=== PATIENT | male | born 2000 | race Caucasian/White ===

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

== ENCOUNTER 2019-03-27 10:13 | Emergency (ER) | payer BC, OTHER ==
[2019-03-27] MEDS ORDERED: NA CHLORIDE 0.9% 1,000 ML ONE (12:17)
[2019-03-27] MEDS ORDERED: ONDANSETRON 4 MG/2 ML VIAL ONE (12:17)
[2019-03-27 12:47] LABS: Absolute Lymphocytes (CBC) 1.1 K/uL (0.7-4.9); Basophils % 0.5 % (0-1.3); Hematocrit 40.6 % (39.6-49.0); Lymphocytes % 37.3 % (15.3-44.8); MPV 8.7 fL (7.6-11.3); RBC Red Blood Cell Count 4.59 M/uL (4.33-5.43)
[2019-03-27 12:55] LABS: ALT/SGPT 42 U/L (12-78); AST/SGOT 25 U/L (15-37); Alkaline Phosphatase 70 U/L (45-117); BUN Blood Urea Nitrogen 13 mg/dL (7-18); Bicarbonate 29 mmol/L (21-32); Bilirubin Direct < 0.1 mg/dL (0-0.2); Bilirubin Total 0.4 mg/dL (0.2-1.0); Glucose Level 93 mg/dL (74-106); Lipase 68 U/L (73-393); Protein, Total 7.6 g/dL (6.4-8.2); Sodium Level 141 mmol/L (136-145)
[2019-03-27 13:23] LABS: Blood Morphology Comment NOT SEEN (NOT SEEN); Platelet Estimate ADEQ; Platelets, Giant FEW
--- NOTE | 2019-03-27 16:38 | ER ---
Nurse's Notes [facility] Name: German Bryant Age: 18 yrs Sex: Male : 2000 Arrival Date: 03/27/2019 Time: 10:17 Bed 25 Private MD: Diagnosis: Headache;Lower abdominal pain, unspecified-RLQ Presentation: 03/27 10:57 Presenting complaint: Patient states: "I can eat and drink fine, but my stomach hurts aj1 and my head hurts and I'm sensitive to light. It started yesterday but it wasn't that bad, but when I woke up today it was horrible" Denies N/V/D. Reports that he had a fever last night of 101.4. Transition of care: patient was not received from another setting of care. Onset of symptoms was March 26, 2019. Risk Assessment: Do you want to hurt yourself or someone else? Patient reports no desire to harm self or others. Initial Sepsis Screen: Does the patient meet any 2 criteria? HR > 90 bpm. No. Patient's initial sepsis screen is negative. Does the patient have a suspected source of infection? Yes: Acute abdominal pain. Care prior to arrival: None. 10:57 Method Of Arrival: Ambulatory aj 10:57 Acuity: ALESHA 3 aj1 Triage Assessment: 10:58 Headache History: The patient has had previous headaches and this one is similar to aj1 previous episodes. General: Appears in no apparent distress. uncomfortable, Behavior is calm, cooperative, appropriate for age. Pain: Complains of pain in left parietal area, right parietal area and right lower quadrant Pain currently is 8 out of 10 on a pain scale. Pain began 1 day ago. Also complains of sensitivity to light. Neuro: Level of Consciousness is awake, alert, obeys commands, Oriented to person, place, time, situation, Gait is steady, Speech is normal, Reports headache photophobia. Cardiovascular: Patient's skin is warm and dry. Respiratory: Airway is patent Respiratory effort is even, unlabored, Respiratory pattern is regular, symmetrical. Historical: - Allergies: 10:58 No Known Allergies; aj1 - PMHx: 10:58 None; aj1 - Immunization history:: Flu vaccine is not up to date. - Ebola Screening: : Patient denies travel to an Ebola-affected area in the 21 days before illness onset. Screenin:49 Abuse screen: Denies threats or abuse. Denies injuries from another. Nutritional mg2 screening: No deficits noted. Tuberculosis screening: No symptoms or risk factors identified. Fall Risk IV access (20 points). Assessment: 12:47 General: Appears in no apparent distress. comfortable, Behavior is calm, cooperative. mg2 Pain: Complains of pain in abdomen and head Pain does not radiate. Pain currently is 5 out of 10 on a pain scale. Quality of pain is described as aching, Pain began gradually. Neuro: Level of Consciousness is awake, alert, obeys commands, Oriented to person, place, time, situation, Reports headache. Cardiovascular: Capillary refill < 3 seconds Patient's skin is warm and dry. Respiratory: Airway is patent Respiratory effort is even, unlabored, Respiratory pattern is regular, symmetrical. GI: Abdomen is flat, non-distended, Reports lower abdominal pain, nausea. : No signs and/or symptoms were reported regarding the genitourinary system. EENT: No signs and/or symptoms were reported regarding the EENT system. Derm: Skin is intact, is healthy with good turgor, Skin is pink, warm \\T\\ dry. normal. Musculoskeletal: No signs and/or symptoms reported regarding the musculoskeletal system. 13:41 Reassessment: patient refused to ct scan abdomen. he wants to leave because her child mg2 has appointment with her pediatrian at 3 pm today. risk explained and understood. provider also came and talk to the patient. AMA form signed by the patient himself. discharged ambulatory, no in distress, pain tolerable. Vital Signs: 10:58 BP 119 / 73; Pulse 91; Resp 18; Temp 98.8; Pulse Ox 97% on R/A; Height 5 ft. 9 in. aj1 (175.26 cm) (R); Pain 8/10; 13:43 BP 120 / 78; Pulse 80; Resp 18; Temp 98.5; Pulse Ox 100% on R/A; Pain 1/10; mg2 ED Course: 10:17 Patient arrived in ED. as 10:58 Triage completed. aj1 10:58 Arm band placed on Patient placed in waiting room, Patient notified of wait time. aj1 11:59 Bandar Michele PA is PHCP. cp 12:00 Marcus Lawson MD is Attending Physician. cp 12:09 Elian Rojas, RN is Primary Nurse. mg2 12:49 Patient has correct armband on for positive identification. Pulse ox on. NIBP on. mg2 12:49 No provider procedures requiring assistance completed. Inserted saline lock: 20 gauge mg2 in left antecubital area, using aseptic technique. Blood collected. 13:43 IV discontinued, intact, bleeding controlled, No redness/swelling at site. Pressure mg2 dressing applied. Administered Medications: 12:29 Drug: NS 0.9% 1000 ml Route: IV; Rate: 1 bolus; Site: left antecubital; mg2 12:29 Drug: Zofran 4 mg Route: IVP; Site: left antecubital; mg2 13:18 Follow up: Response: No adverse reaction; Marked relief of symptoms mg2 Outcome: 13:43 AMA AMA form signed mg2 13:43 Condition: stable 13:43 Discharge instructions given to patient, family, Instructed on discharge instructions, Demonstrated understanding of instructions. 13:44 Patient left the ED. mg2 Signatures: Ruchi Castillo RN RN aj1 Guillermina Melendrez as Bandar Michele PA PA cp Elian oRjas, SHERRY RN mg2
--- NOTE | 2019-03-27 16:39 | EDPHYS ---
Physician Documentation [facility] Name: German Bryant Age: 18 yrs Sex: Male : 2000 Arrival Date: 03/27/2019 Time: 10:17 Bed 25 Private MD: ED Physician Marcus Lawson HPI: 03/27 12:10 This 18 yrs old Male presents to ER via Ambulatory with complaints of cp Headache, Abdominal Pain. 12:10 The patient complains of pain to the posterior aspect of head. The patient describes cp the headache as aching, constant. Onset: The symptoms/episode began/occurred yesterday. Associated signs and symptoms: Pertinent positives: nausea, Photophobia Pertinent negatives: neck stiffness, sinus congestion, sinus tenderness, vomiting, weakness. Headache History: Denies prior headaches. 12:12 The patient presents with abdominal pain right lower quadrant. cp 12:12 Onset: The symptoms/episode began/occurred yesterday. The symptoms do not radiate. cp Associated signs and symptoms: Pertinent negatives: blood in stools, constipation, diarrhea, dysuria, testicular pain, vomiting. The symptoms are described as constant. Historical: - Allergies: 10:58 No Known Allergies; aj1 - PMHx: 10:58 None; aj1 - Immunization history:: Flu vaccine is not up to date. - Ebola Screening: : Patient denies travel to an Ebola-affected area in the 21 days before illness onset. ROS: 12:20 Constitutional: Negative for body aches, chills, fever, poor PO intake. cp 12:20 Eyes: Negative for injury, pain, redness, and discharge. cp Exam: 12:25 Constitutional: The patient appears in no acute distress, alert, awake, non-toxic, well cp developed, well nourished. 12:25 Head/Face: Normocephalic, atraumatic. cp 12:25 Eyes: Periorbital structures: appear normal, Conjunctiva: normal, no exudate, no injection, Sclera: no appreciated abnormality, Lids and lashes: appear normal, bilaterally. 12:25 ENT: External ear(s): are unremarkable, Ear canal(s): are normal, clear, TM's: bulging, is not appreciated, bilaterally, dullness, bilaterally, erythema, is not appreciated, bilaterally, Nose: is normal, Mouth: is normal, Posterior pharynx: is normal, airway is patent, no erythema, no exudate. 12:25 Neck: ROM/movement: is normal, is supple, without pain, no range of motions limitations, no meningismus, no nuchal rigidity. 12:25 Chest/axilla: Inspection: normal, Palpation: is normal, no crepitus, no tenderness. 12:25 Cardiovascular: Rate: normal, Rhythm: regular. 12:25 Respiratory: the patient does not display signs of respiratory distress, Respirations: normal, no use of accessory muscles, no retractions, no splinting, no tachypnea, labored breathing, is not present, Breath sounds: are clear throughout, no decreased breath sounds, no stridor, no wheezing. 12:25 Abdomen/GI: Inspection: abdomen appears normal, Bowel sounds: active, all quadrants, Palpation: soft, in all quadrants, mild abdominal tenderness, in the right lower quadrant, rebound tenderness, voluntary guarding, is not appreciated, involuntary guarding, is not appreciated. 12:25 Skin: cellulitis, is not appreciated, no rash present. Vital Signs: 10:58 BP 119 / 73; Pulse 91; Resp 18; Temp 98.8; Pulse Ox 97% on R/A; Height 5 ft. 9 in. aj1 (175.26 cm) (R); Pain 8/10; 13:43 BP 120 / 78; Pulse 80; Resp 18; Temp 98.5; Pulse Ox 100% on R/A; Pain 1/10; mg2 MDM: 12:02 Patient medically screened. cp 13:14 Data reviewed: vital signs, nurses notes, lab test result(s). cp 13:14 Refusal of service: The patient/guardian displays adequate decision making capability cp and despite a detailed discussion of alternatives, benefits, risks, and consequences refuses: CT Scan. 03/27 12:07 Order name: Basic Metabolic Panel 03/27 12:07 Order name: CBC with Diff 03/27 12:07 Order name: Creatinine for Radiology 03/27 12:07 Order name: Hepatic Function 03/27 12:07 Order name: Lipase 03/27 12:08 Order name: CT Head Brain wo Cont 03/27 12:07 Order name: IV Saline Lock; Complete Time: 12:30 03/27 12:07 Order name: Labs collected and sent; Complete Time: 12:30 cp 03/27 12:08 Order name: CT Abd/Pelvis - PO and IV Contrast cp Administered Medications: 12:29 Drug: NS 0.9% 1000 ml Route: IV; Rate: 1 bolus; Site: left antecubital; mg2 12:29 Drug: Zofran 4 mg Route: IVP; Site: left antecubital; mg2 13:18 Follow up: Response: No adverse reaction; Marked relief of symptoms mg2 Disposition: 14:54 Co-signature as Attending Physician, Marcus Lawson MD I agree with the assessment and kdr plan of care. Disposition: 03/27/19 13:14 Patient has left against medical advice. Impression: Headache, Lower abdominal pain, unspecified - RLQ. - Patients states they are going to Home. - Condition is Stable. - Discharge Instructions: Abdominal Pain, Adult, General Headache Without Cause. Work release form form. Follow up: Private Physician; When: 1 - 2 days; Reason: Worsening of condition. - Problem is new. - Symptoms have improved. Signatures: Dispatcher [employer] EDRuchi Winter RN RN aj1 Marcus Lawson MD MD kdr Bandar Michele PA PA cp Elian Rojas RN RN mg2 Corrections: (The following items were deleted from the chart) 13:14 13:14 03/27/2019 13:14 Patients has left against medical advice. Impression: Headache; cp Lower abdominal pain, unspecified. Patient states they are going to Home. Condition is Stable. Follow up: Private Physician; When: 1 - 2 days; Reason: Worsening of condition. Problem is new. Symptoms have improved. cp 13:44 13:14 03/27/2019 13:14 Patients has left against medical advice. Impression: Headache; mg2 Lower abdominal pain, unspecified - RLQ. Patient states they are going to Home. Condition is Stable. Discharge Instructions: Abdominal Pain, Adult, General Headache Without Cause. Follow up: Private Physician; When: 1 - 2 days; Reason: Worsening of condition. Problem is new. Symptoms have improved. cp
== END 2019-03-27 13:44 | disposition left against medical advice (07) ==
LOC: ER 10:13
DX: R51 Headache (principal); R10.31 Right lower quadrant pain
CPT/HCPCS: 85025; 80048; 36415; 80076; 83690; 96374; 99284; J7030; J2405

== ENCOUNTER 2021-05-11 11:46 | Emergency (ER) | payer BC, SELFPAY ==
--- NOTE | 2021-05-11 12:16 | RAD REPORT ---
EXAM DESCRIPTION: CTStone Protocol - 05/11/2021 12:08 pm CLINICAL HISTORY: FLANK PAIN COMPARISON: No comparisonsStone Protocol dated 12/16/2017 TECHNIQUE: CT of the abdomen and pelvis was performed. All CT scans are performed using dose optimization technique as appropriate and may include automated exposure control or mA/KV adjustment according to patient size. FINDINGS: Lower chest: No acute abnormality. Liver: No acute abnormality or suspicious lesions. Biliary: No biliary ductal dilatation. Stomach: No significant focal abnormality. Duodenum: No significant focal abnormality. Pancreas: No significant abnormality. Spleen: No significant abnormality. Adrenal: No suspicious lesions. Kidney/ureter: Mild right-sided hydronephrosis secondary to a 3 mm stone at the right UVJ. Other punc molina renal calculi noted bilaterally. Retroperitoneum: No retroperitoneal adenopathy. Vascular: No aneurysm. Bowel: No significant focal abnormality. Normal appendix. Peritoneum: No ascites or free air. Small fat containing umbilical hernia. Bladder: Grossly unremarkable. Reproductive: No adnexal masses. Bones: No acute fracture. Other: n/a IMPRESSION: Mild right-sided hydroureteronephrosis secondary to a 3 millimeters stone at the right U VJ.
[2021-05-11] MEDS ORDERED: MORPHINE 4 MG/ML SYR ONE (12:25)
[2021-05-11] MEDS ORDERED: ONDANSETRON 4 MG/2 ML VIAL ONE (12:25)
[2021-05-11 12:28] LABS: Absolute Lymphocytes (CBC) 2.1 K/uL (0.7-4.9); Basophils % 0.4 % (0-1.3); Hematocrit 44.8 % (39.6-49.0); Lymphocytes % 18.5 % (15.3-44.8); MPV 8.7 fL (7.6-11.3); RBC Red Blood Cell Count 5.15 M/uL (4.33-5.43)
[2021-05-11 12:35] LABS: Albumin 4.8 g/dL (3.4-5.0); Bilirubin Direct 0.1 mg/dL (0-0.2); Bilirubin Total 0.7 mg/dL (0.2-1.0); Potassium 3.9 mmol/L (3.5-5.1); Protein, Total 8.5 g/dL (6.4-8.2)
[2021-05-11] MEDS ORDERED: TAMSULOSIN 0.4 MG SR CAP ONE (13:07)
[2021-05-11 13:26] LABS: Urine Blood 3+ (Negative); Urine Glucose Negative (Negative); Urine Protein 2+ (Negative); Urine Specific Gravity 1.025 (1.005-1.030); Urine pH 8.5 (5.0-7.0)
[2021-05-11] MEDS ORDERED: METOCLOPRAMIDE 10 MG/2mL INJ ONE (14:23)
[2021-05-11] MEDS ORDERED: NA CHLORIDE 0.9% 1,000 ML ONE (14:24)
--- NOTE | 2021-05-11 16:07 | EDPHYS ---
Physician Documentation [facility] Name: German Bryant Age: 20 yrs Sex: Male : 2000 Arrival Date: 05/11/2021 Time: 11:47 Bed 14 Private MD: ED Physician Marcus Lawson HPI: 05/11 14:31 This 20 yrs old Male presents to ER via Ambulatory with complaints of jmm Possible Kidney Stone. 14:31 The patient complains of pain in the right flank. Onset: The symptoms/episode jmm began/occurred acutely, today. Modifying factors: The symptoms are alleviated by nothing. the symptoms are aggravated by nothing. Associated signs and symptoms: Pertinent positives: vomiting, Pertinent negatives: fever. The patient has experienced similar episodes in the past, with previous kidney stones. Historical: - Allergies: 11:52 No Known Allergies; tw2 - Home Meds: 11:52 None [Active]; tw2 - PMHx: 12:00 Kidney stone; es2 - PSHx: 11:52 None; tw2 - Immunization history:: Client reports having NOT received the Covid vaccine. - Social history:: Smoking status: Patient reports the use of cigarette tobacco products, "1 pk a week ". ROS: 14:31 Constitutional: Negative for fever, chills, and weight loss, Cardiovascular: Negative jmm for chest pain, palpitations, and edema, Respiratory: Negative for shortness of breath, cough, wheezing, and pleuritic chest pain. 14:31 Abdomen/GI: Positive for abdominal pain, nausea and vomiting. 14:31 All other systems are negative. Exam: 14:31 Head/Face: atraumatic. Eyes: EOMI, no conjunctival erythema appreciated ENT: Moist jmm Mucus Membranes Neck: Trachea midline, Supple Chest/axilla: Normal chest wall appearance and motion. Cardiovascular: Regular rate and rhythm. No edema appreciated Respiratory: Normal respirations, no respiratory distress appreciated 14:31 Skin: General appearance color normal MS/ Extremity: Moves all extremities, no obvious deformities appreciated, no edema noted to the lower extremities Neuro: Awake and alert, normal gait Psych: Behavior is normal, Mood is normal, Patient is cooperative and pleasant 14:31 Constitutional: The patient appears alert, awake, in obvious pain, uncomfortable. 14:31 Abdomen/GI: Inspection: abdomen appears normal, Bowel sounds: normal, Palpation: soft, mild abdominal tenderness, in the suprapubic area and right lower quadrant. Vital Signs: 11:50 BP 128 / 89; Pulse 74; Resp 17; Temp 97.4(TE); Pulse Ox 100% on R/A; Weight 81.65 kg tw2 (R); Height 5 ft. 10 in. (177.80 cm); Pain 10; 16:13 BP 112 / 67; es2 11:50 Body Mass Index 25.83 (81.65 kg, 177.80 cm) tw2 MDM: 12:10 Patient medically screened. [facility] 16:06 Data reviewed: vital signs, nurses notes. Counseling: I had a detailed discussion with [facility] the patient and/or guardian regarding: the historical points, exam findings, and any diagnostic results supporting the discharge/admit diagnosis, lab results, radiology results, the need for outpatient follow up, to return to the emergency department if symptoms worsen or persist or if there are any questions or concerns that arise at home. 05/11 11:56 Order name: Basic Metabolic Panel; Complete Time: 12:39 [facility] 05/11 11:56 Order name: CBC with Diff; Complete Time: 12:30 [facility] 05/11 11:56 Order name: Hepatic Function; Complete Time: 12:39 [facility] 05/11 11:56 Order name: Lipase; Complete Time: 12:39 [facility] 05/11 11:56 Order name: CT Stone Protocol; Complete Time: 12:17 [facility] 05/11 13:26 Order name: Urine Dipstick-Ancillary; Complete Time: 13:35 [facility] 05/11 11:56 Order name: IV Saline Lock; Complete Time: 11:59 [facility] 05/11 11:56 Order name: Labs collected and sent; Complete Time: 11:59 [facility] 05/11 11:56 Order name: Urine Dipstick-Ancillary (obtain specimen); Complete Time: 13:29 [facility] Administered Medications: 12:03 Drug: morphine 4 mg {Note: Rass 0.} Route: IVP; Site: right antecubital; es2 12:03 Drug: Zofran (Ondansetron) 4 mg Route: IVP; Site: right antecubital; es2 12:43 Drug: Flomax (tamsulosin) 0.4 mg Route: PO; ld1 14:01 Drug: NS 0.9% 1000 ml Route: IV; Rate: 1 bolus; Site: right antecubital; es2 15:34 Follow up: Response: No adverse reaction; IV Status: Completed infusion es2 14:01 Drug: Reglan (metoCLOPramide) 20 mg Route: IVP; Site: right antecubital; es2 14:01 Follow up: Response: No adverse reaction es2 15:34 Follow up: Response: No adverse reaction es2 16:06 Drug: Ketorolac 30 mg Route: IVP; Site: right antecubital; es2 16:07 Follow up: Response: No adverse reaction es2 Disposition: 23:45 Co-signature as Attending Physician, Marcus Lawson MD I agree with the assessment and kdr plan of care. Disposition Summary: 05/11/21 16:06 Discharge Ordered Location: Home [facility] Condition: Stable [facility] Diagnosis - Calculus of ureter [facility] Followup: [facility] - With: Kyree Leal MD - When: 2 - 3 days - Reason: Recheck today's complaints, Continuance of care, Re-evaluation by your physician Discharge Instructions: - Discharge Summary Sheet [facility] - Kidney Stones [facility] - Dietary Guidelines to Help Prevent Kidney Stones [facility] Forms: - Medication Reconciliation Form [facility] - Thank You Letter [facility] - Antibiotic Education [facility] - Prescription Opioid Use [facility] Prescriptions: - tamsulosin 0.4 mg Oral capsule - take 1 capsule by ORAL route once daily 1/2 hour following the same meal each [facility] day; 10 capsule; Refills: 0, Product Selection Permitted - Ultracet 37.5-325 mg Oral Tablet - take 1 tablet by ORAL route every 6 hours - for up to 5 days; do not exceed 8 [facility] tablets per day.; 20 tablet; Refills: 0, Product Selection Permitted - ondansetron 4 mg Oral tablet,disintegrating - place 1 tablet by TRANSLINGUAL route every 4-6 hours; 20 tablet; Refills: 0, [facility] Product Selection Permitted Signatures: Dispatcher [employer] Marcus Alonzo MD MD kdr Mickail, Joel, PA PA [facility] Mignon Kearns RN RN tw2 Monika Carney RN RN ld1 Zhane Robles RN RN es2 Corrections: (The following items were deleted from the chart) 11:52 PMHx: None; tw2 es2
--- NOTE | 2021-05-11 16:07 | ER ---
Nurse's Notes [facility] Name: German Bryant Age: 20 yrs Sex: Male : 2000 Arrival Date: 05/11/2021 Time: 11:47 Bed 14 Private MD: Diagnosis: Calculus of ureter Presentation: 05/11 11:50 Chief complaint: Patient states: the right side of my genitals all the way up to my tw2 back side on the right. it started at 10 am today. +V 4xs all clear vomit. Coronavirus screen: At this time, the client does not indicate any symptoms associated with coronavirus-19. Ebola Screen: Patient denies travel to an Ebola-affected area in the 21 days before illness onset. Initial Sepsis Screen: Does the patient meet any 2 criteria? No. Patient's initial sepsis screen is negative. Does the patient have a suspected source of infection? No. Patient's initial sepsis screen is negative. Risk Assessment: Do you want to hurt yourself or someone else? Patient reports no desire to harm self or others. Onset of symptoms was May 11, 2021. 11:50 Method Of Arrival: Ambulatory tw2 11:50 Acuity: ALESHA 2 tw2 Triage Assessment: 11:53 General: Appears uncomfortable, Behavior is cooperative, appropriate for age. Pain: tw2 Complains of pain in pelvis and right flank. GI: Reports vomiting. Historical: - Allergies: 11:52 No Known Allergies; tw2 - Home Meds: 11:52 None [Active]; tw2 - PMHx: 12:00 Kidney stone; es2 - PSHx: 11:52 None; tw2 - Immunization history:: Client reports having NOT received the Covid vaccine. - Social history:: Smoking status: Patient reports the use of cigarette tobacco products, "1 pk a week ". Screenin:00 Abuse screen: Denies threats or abuse. Nutritional screening: No deficits noted. es2 Tuberculosis screening: No symptoms or risk factors identified. Fall Risk None identified. Assessment: 14:04 General: Appears distressed, ill, Behavior is appropriate for age. Pain: Pain currently es2 is 10 out of 10 on a pain scale. Neuro: Level of Consciousness is awake, alert, obeys commands, Oriented to person, place, time, situation, Appropriate for age Gait is steady, Speech is normal. Cardiovascular: Capillary refill < 3 seconds Patient's skin is warm and dry. Respiratory: Airway is patent Respiratory effort is even, Respiratory pattern is regular. GI: Bowel sounds Abd is soft. : Reports blood in urine. EENT: No signs and/or symptoms were reported regarding the EENT system. Derm: No signs and/or symptoms reported regarding the dermatologic system. Musculoskeletal: No signs and/or symptoms reported regarding the musculoskeletal system. Vital Signs: 11:50 BP 128 / 89; Pulse 74; Resp 17; Temp 97.4(TE); Pulse Ox 100% on R/A; Weight 81.65 kg tw2 (R); Height 5 ft. 10 in. (177.80 cm); Pain 10/10; 16:13 BP 112 / 67; es2 11:50 Body Mass Index 25.83 (81.65 kg, 177.80 cm) tw2 ED Course: 11:47 Patient arrived in ED. ds1 11:52 Triage completed. tw2 11:52 Arm band placed on. tw2 11:53 Bed in low position. Call light in reach. es2 11:54 Westley Thurston PA is PHCP. jmm 11:54 Marcus Lawson MD is Attending Physician. jmm 11:58 Zhane Robles RN is Primary Nurse. es2 11:59 Inserted saline lock: 20 gauge in right antecubital area, using aseptic technique. es2 ,using aseptic technique. by SHERRY Crow Blood collected. 12:03 Basic Metabolic Panel Sent. es2 12:03 CBC with Diff Sent. es2 12:03 Hepatic Function Sent. es2 12:03 Lipase Sent. es2 12:08 CT Stone Protocol In Process Unspecified. EDMS 16:06 Kyree Leal MD is Referral Physician. jmm 16:13 No provider procedures requiring assistance completed. IV discontinued, intact, es2 bleeding controlled, No redness/swelling at site. Pressure dressing applied. Administered Medications: 12:03 Drug: morphine 4 mg {Note: Rass 0.} Route: IVP; Site: right antecubital; es2 12:03 Drug: Zofran (Ondansetron) 4 mg Route: IVP; Site: right antecubital; es2 12:43 Drug: Flomax (tamsulosin) 0.4 mg Route: PO; ld1 14:01 Drug: NS 0.9% 1000 ml Route: IV; Rate: 1 bolus; Site: right antecubital; es2 15:34 Follow up: Response: No adverse reaction; IV Status: Completed infusion es2 14:01 Drug: Reglan (metoCLOPramide) 20 mg Route: IVP; Site: right antecubital; es2 14:01 Follow up: Response: No adverse reaction es2 15:34 Follow up: Response: No adverse reaction es2 16:06 Drug: Ketorolac 30 mg Route: IVP; Site: right antecubital; es2 16:07 Follow up: Response: No adverse reaction es2 Outcome: 16:06 Discharge ordered by . jaci 16:13 Discharged to home ambulatory. es2 16:13 Condition: stable 16:13 Discharge instructions given to patient, Instructed on discharge instructions, follow up and referral plans. medication usage, Demonstrated understanding of instructions, follow-up care, medications, Prescriptions given X 3. 16:14 Patient left the ED. es2 Signatures: Dispatcher [employer] EDMS Westley Thurston PA PA jmm Sanford, Demi ds1 Mignon Kearns RN RN tw2 Monika Carney RN RN ld1 Zhane Robles RN RN es2 Corrections: (The following items were deleted from the chart) 11:53 11:50 Acuity: ALESHA 3 tw2 tw2 12:00 11:52 PMHx: None; tw2 es2
[2021-05-11 16:21] VITALS: TEMP 97.4; O2SAT 100
[2021-05-11 16:22] VITALS: BP 112/67
[2021-05-11] MEDS ORDERED: KETOROLAC 30 MG/ML INJ ONE (16:31)
== END 2021-05-11 16:14 | disposition home or self-care (01) ==
LOC: ER 11:46
DX: N20.1 Calculus of ureter (principal); F17.210 Nicotine dependence, cigarettes, uncomplicated
CPT/HCPCS: 36415; 74176; 76377; 80048; 80076; 81003; 83690; 85025; 96361; 96374; 96375; 99284; J2405; J2765; J7030

== ENCOUNTER 2023-03-08 12:58 | Emergency (ER) | payer SELFPAY ==
--- OUTSIDE RECORDS SUMMARY | 2023-03-08 13:01 | XMS REPORT | Continuity of Care Document ---
:[address] [facility] t Address [address] [place] [address] Care Team Providers Name Role Phone Emma Rothman Attending Clinician Unavailable Problems This patient has no known problems. Allergies, Adverse Reactions, Alerts This patient has no known allergies or adverse reactions. Medications This patient has no known medications. Procedures This patient has no known procedures. Encounters Start End Encounter Admission Attending Care Care Encounter Source Date/Time Date/Time Type Type Clinicians Facility Department ID 2022-08-17 2022-08-17 Emergency ER CYNDEE Rothman [facility] [id number] 12:26:00 15:54:00 Emma -[id number] [facility] Results This patient has no known results.
--- NOTE | 2023-03-08 15:33 | ER ---
Nurse's Notes [facility] Name: German Bryant Age: 22 yrs Sex: Male : 2000 Arrival Date: 03/08/2023 Time: 12:58 Bed IW10 Private MD: Diagnosis: Nausea with vomiting, unspecified Presentation: 03/08 13:17 Chief complaint: Patient states: For the past 2-3 days, I've had a lack of appetite, mb9 nauseous, and my stomach hurts in the middle. Yesterday, I started getting a headache that feels like pressure and comes and goes. I work out in the heat but make sure to stay hydrated with water. I just feel weak". Coronavirus screen: Vaccine status: Patient reports being unvaccinated. Ebola Screen: No symptoms or risks identified at this time. Initial Sepsis Screen: Does the patient meet any 2 criteria? No. Patient's initial sepsis screen is negative. Does the patient have a suspected source of infection? No. Patient's initial sepsis screen is negative. Risk Assessment: Do you want to hurt yourself or someone else? Patient reports no desire to harm self or others. Onset of symptoms was 2022. 13:17 Method Of Arrival: Ambulatory mb9 13:17 Acuity: ALESHA 3 mb9 Triage Assessment: 13:21 General: Appears uncomfortable, Behavior is calm, cooperative. Pain: Complains of pain mb9 in abdomen and head Pain does not radiate. Pain currently is 4 out of 10 on a pain scale. Quality of pain is described as throbbing, Pain began 2-3 days ago. Neuro: Level of Consciousness is awake, alert, obeys commands, Oriented to person, place, time, situation, Appropriate for age Reports headache weakness. Cardiovascular: Patient's skin is warm and dry. Respiratory: Airway is patent Respiratory effort is even, unlabored, Respiratory pattern is regular, symmetrical, Denies cough, shortness of breath. GI: Reports nausea, Patient currently denies diarrhea, vomiting. : No signs and/or symptoms were reported regarding the genitourinary system. Derm: Skin is pink, warm \\T\\ dry. Musculoskeletal: Range of motion: intact in all extremities. Historical: - Allergies: 13:20 No Known Allergies; mb9 - Home Meds: 13:20 None [Active]; mb9 - PMHx: 13:20 Kidney stone; mb9 - PSHx: 13:20 None; mb9 - Immunization history:: Adult Immunizations up to date. - Social history:: Smoking status: Reported history of juuling and/or vaping. - Family history:: not pertinent. - Hospitalizations: : No recent hospitalization is reported. Screenin:[address] [facility] ED Fall Risk Assessment (Adult) History of falling in the last 3 months, mb9 including since admission No falls in past 3 months (0 pts) Confusion or Disorientation No (0 pts) Intoxicated or Sedated No (0 pts) Impaired Gait No (0 pts) Mobility Assist Device Used No (0 pt) Altered Elimination No (0 pt) Score/Fall Risk Level 0 - 2 = Low Risk Oriented to surroundings, Maintained a safe environment, Educated pt \\T\\ family on fall prevention, incl call for assistance when getting out of bed. Abuse screen: Denies threats or abuse. Nutritional screening: No deficits noted. Tuberculosis screening: No symptoms or risk factors identified. Assessment: 13:23 Reassessment: see triage asssessment. mb9 14:45 Reassessment: attempted to call pt from [facility]. mb9 Vital Signs: 13:17 BP 123 / 75; Pulse 81; Resp 18; Temp 99; Pulse Ox 97% on R/A; Weight 72.57 kg; Height 5 mb9 ft. 10 in. ; Pain 4/10; 13:17 Body Mass Index 22.96 (72.57 kg, 177.8 cm) mb9 13:17 Pain Scale: Adult mb9 ED Course: 13:00 Patient arrived in ED. mg5 13:17 Arm band placed on. mb9 13:19 Juanito House MD is Attending Physician. rn 13:20 Triage completed. mb9 16:15 No provider procedures requiring assistance completed. Patient did not have IV access bp during this emergency room visit. Administered Medications: No medications were administered Medication: 13:22 VIS not applicable for this client. mb9 Outcome: 15:32 Discharge ordered by . rn 16:14 Discharged to home ambulatory. bp 16:14 Condition: stable 16:14 Discharge instructions given to patient, Instructed on discharge instructions. 16:15 Patient left the ED. bp Signatures: Juanito House MD MD rn Peltier, Brian, RN RN bp Breneman, Mary Beth, RN RN mb9 Nel Avila mg5 Corrections: (The following items were deleted from the chart) 13:20 13:17 Chief complaint: Patient states: For the past 2-3 days, I've had a lack of mb9 appetite, nauseous, and my stomach hurts in the middle. Yesterday, I started getting a headache that feels like pressure and comes and goes" mb9 13:22 13:17 Chief complaint: Patient states: For the past 2-3 days, I've had a lack of mb9 appetite, nauseous, and my stomach hurts in the middle. Yesterday, I started getting a headache that feels like pressure and comes and goes. I work out in the heat but make sure to stay hydrated with water" mb9
--- NOTE | 2023-03-08 15:33 | EDPHYS ---
Physician Documentation [facility] Name: German Bryant Age: 22 yrs Sex: Male : 2000 Arrival Date: 03/08/2023 Time: 12:58 Bed [id number] Private MD: ED Physician Juanito House HPI: 03/08 13:42 This 22 yrs old Male presents to ER via Ambulatory with complaints of Nausea, Upset rn Stomache, Headache. 13:42 The patient presents to the emergency department with nausea, vomiting. Onset: The rn symptoms/episode began/occurred yesterday. Possible causes: unknown. The symptoms are aggravated by nothing. The symptoms are alleviated by nothing. Associated signs and symptoms: Pertinent positives: abdominal pain, nausea, vomiting, Pertinent negatives: GI bleeding. Severity of symptoms: At their worst the symptoms were moderate in the emergency department the symptoms are unchanged. The patient has not experienced similar symptoms in the past. Pt reports nausea/vomiting/headache. Historical: - Allergies: 13:20 No Known Allergies; mb9 - Home Meds: 13:20 None [Active]; mb9 - PMHx: 13:20 Kidney stone; mb9 - PSHx: 13:20 None; mb9 - Immunization history:: Adult Immunizations up to date. - Social history:: Smoking status: Reported history of juuling and/or vaping. - Family history:: not pertinent. - Hospitalizations: : No recent hospitalization is reported. ROS: 13:43 Constitutional: + subjective fever and chills Eyes: Negative for injury, pain, redness, rn and discharge, Cardiovascular: Negative for chest pain, palpitations, and edema, Respiratory: Negative for shortness of breath, cough, wheezing, and pleuritic chest pain, Abdomen/GI: Negative for diarrhea, and constipation MS/Extremity: Negative for injury and deformity, Skin: Negative for injury, rash, and discoloration, Neuro: Negative for numbness, tingling, and seizure Exam: 13:43 Constitutional: This is a well developed, well nourished patient who is awake, alert, rn and in no acute distress. ENT: dry MM Neck: No Meningismus. Cardiovascular: Regular rate and rhythm. No pulse deficits. Respiratory: No increased work of breathing, no retractions or nasal flaring. Abdomen/GI: soft, mild mid abd tenderness, no rebound/guarding Skin: Warm, dry MS/ Extremity: Pulses equal, no cyanosis. Neuro: Awake and alert, GCS 15, oriented to person, place, time, and situation. Cranial nerves II-XII grossly intact. Motor strength 5/5 in all extremities. Sensory grossly intact. Cerebellar exam normal. Normal gait. Vital Signs: 13:17 BP 123 / 75; Pulse 81; Resp 18; Temp 99; Pulse Ox 97% on R/A; Weight 72.57 kg; Height 5 mb9 ft. 10 in. ; Pain 4/10; 13:17 Body Mass Index 22.96 (72.57 kg, 177.8 cm) mb9 13:17 Pain Scale: Adult mb9 MDM: 13:19 Patient medically screened. rn 15:31 Differential diagnosis: Nonspecific abd pain, gastritis, pancreatitis, appendicitis, rn viral gastroenteritis, gastroenteritis. Data reviewed: vital signs, nurses notes, and as a result, I will discharge patient. Counseling: I had a detailed discussion with the patient and/or guardian regarding: the historical points, exam findings, and any diagnostic results supporting the discharge/admit diagnosis. ED course: Pt left shortly after triage, did not want anything else done, left prior to labs and imaging performed. Waited for a couple of hours, checked with CT department and in triage/waiting room/outside, no where to be found. . 03/08 13:25 Order name: IV Saline Lock rn 03/08 13:25 Order name: Labs collected and sent rn Administered Medications: No medications were administered Disposition Summary: 03/08/23 15:32 Discharge Ordered Location: Home rn Problem: new rn Symptoms: are unchanged rn Condition: Stable rn Diagnosis - Nausea with vomiting, unspecified rn Followup: rn - With: Private Physician - When: As needed - Reason: Recheck today's complaints, Re-evaluation by your physician Discharge Instructions: - Discharge Summary Sheet rn - Nausea and Vomiting, Adult rn Forms: - Medication Reconciliation Form rn - Thank You Letter rn - Antibiotic gas furnace installer - Prescription Opioid Use rn - Patient Portal Instructions rn Signatures: Dispatcher [employer] EDMS Juanito House MD MD rn Breneman, Mary Beth, RN RN [email or web address] Corrections: (The following items were deleted from the chart) 16:04 13:26 Abdomen Pelvis W Con+CT.RAD.BRZ ordered. EDMS EDMS 16:04 13:43 Head Brain Wo Cont+CT.RAD.BRZ ordered. EDMS EDMS
[2023-03-08 16:28] VITALS: BP 123/75; TEMP 99; O2SAT 97
== END 2023-03-08 16:15 | disposition home or self-care (01) ==
LOC: ER 12:58
DX: R11.2 Nausea with vomiting, unspecified (principal)
CPT/HCPCS: 99282